=== PATIENT | male | born 1970 | race Caucasian/White ===

== ENCOUNTER 2016-08-13 13:13 | Outpatient (CLI) | payer OTHER | END 2016-08-13 13:14 | disposition home or self-care (01) | DX: G47.33 Obstructive sleep apnea (adult) (pediatric) (principal) ==

== ENCOUNTER 2016-11-27 15:43 | Outpatient (CLI) | payer OTHER ==
--- NOTE | 2016-11-27 17:17 | MRI Report ---
EXAM: MRI CERVICAL SPINE WITHOUT CONTRAST EXAM DATE: 11/27/2016 04:51 PM. CLINICAL HISTORY: Cervical radiculopathy, right arm and right neck pain COMPARISONS: None. TECHNIQUE: Multiplanar, multisequence T1-weighted and fluid-sensitive sequences of the cervical spine without contrast. Other: None. FINDINGS: Neurologic Structures: The visualized posterior fossa structures are unremarkable. No signal abnormal ity in the visualized spinal cord. Alignment: Normal. No scoliosis or spondylolisthesis. Bone Marrow: No gross fractures or bone lesions. No marrow edema. Interspace Levels/Facets: C1-C2: Unremarkable. C2-C3: There is mild right facet hypertrophy. There is no central canal or neural foraminal narrowing . C3-C4: There is mild bilateral facet hypertrophy. There is a small disk osteophyte complex. No signif icant central canal or neural foraminal narrowing. C4-C5: There is mild right greater than left facet hypertrophy. There is a small disk osteophyte comp sadaf. No significant central canal or neural foraminal narrowing. C5-C6: There is disk height loss. There is a right paracentral disk osteophyte complex. There is mild central canal and mild right neural foraminal narrowing. C6-C7: There is a moderate-sized right paracentral/foraminal disk osteophyte complex. There is mild c entral canal narrowing. There is severe right neural foraminal narrowing. C7-T1: Unremarkable. Musculature: Normal. No edema or fatty atrophy. Other: The paravertebral and prevertebral soft tissues are normal. IMPRESSION: 1. C6-C7 right paracentral/foraminal disk osteophyte complex with severe right neural foraminal and m ild central canal narrowing. 2. C5-C6 disk osteophyte complex with mild central canal and mild right neural foraminal narrowing. [facility] Referring Provider Line: [phone] SITE ID: [id number]
== END 2016-11-27 15:44 | disposition home or self-care (01) ==
LOC: DI 15:43
PROVIDERS: ATTEND Nurse Practitioner Family
DX: M50.322 Other cervical disc degeneration at C5-C6 level (principal); M47.892 Other spondylosis, cervical region
CPT/HCPCS: 72141

== ENCOUNTER 2016-12-31 15:34 | Outpatient (CLI) | payer OTHER | END 2016-12-31 15:35 | disposition home or self-care (01) | LOC: SC 15:34 | PROVIDERS: ATTEND Nurse Practitioner Family | DX: G47.33 Obstructive sleep apnea (adult) (pediatric) (principal) | CPT/HCPCS: 99212; 99214 ==

== ENCOUNTER 2017-09-30 13:44 | Outpatient (CLI) | payer OTHER | END 2017-09-30 13:45 | disposition home or self-care (01) | LOC: SC 13:44 | PROVIDERS: ATTEND Nurse Practitioner Family | DX: G47.33 Obstructive sleep apnea (adult) (pediatric) (principal) | CPT/HCPCS: 99212; 99214 ==

== ENCOUNTER 2019-05-18 09:25 | Outpatient (CLI) | payer OTHER ==
[2019-05-18 12:26] LABS: BASOPHILS % (AUTO) 0.4 %; EOSINOPHILS # (AUTO) 0.1 10^3/uL (0.0-0.7); EOSINOPHILS % (AUTO) 1.9 %; HGB - HEMOGLOBIN 15.1 g/dL (14.0-18.0); LYMPHOCYTES # (AUTO) 2.2 10^3/uL (1.5-3.5); LYMPHOCYTES % (AUTO) 47.8 %; MEAN CORPUSCULAR HEMOGLOBIN 31.9 pg (27.0-31.0); MEAN CORPUSCULAR HGB CONC 35.1 g/dL (32.0-36.0); MEAN CORPUSCULAR VOLUME 90.9 fL (80.0-94.0); MEAN PLATELET VOLUME 10.4 fL (7.4-11.4); MONOCYTES # (AUTO) 0.5 10^3/uL (0.0-1.0); MONOCYTES % (AUTO) 9.9 %; NEUTROPHILS # (AUTO) 1.8 10^3/uL (1.5-6.6); NEUTROPHILS % (AUTO) 39.8 %; PLT - PLATELET COUNT 192 10^3/uL (130-450); RED BLOOD COUNT 4.73 10^6/uL (4.70-6.10); RED CELL DISTRIBUTION WIDTH 12.1 % (12.0-15.0); WHITE BLOOD COUNT 4.6 x10^3/uL (4.8-10.8)
[2019-05-18 12:44] LABS: ALBUMIN 4.3 g/dL (3.2-5.5); ALBUMIN/GLOBULIN RATIO 1.2 (1.0-2.2); ALKALINE PHOSPHATASE 78 IU/L (42-121); ALT ALANINE AMINOTRANSFERASE 63 IU/L (10-60); AST ASPARTATE AMINOTRANSFERASE 36 IU/L (10-42); BILIRUBIN,TOTAL 0.6 mg/dL (0.2-1.0); BUN - BLOOD UREA NITROGEN 16 mg/dL (6-20); CALCIUM 9.5 mg/dL (8.5-10.3); CARBON DIOXIDE - CO2 26 mmol/L (21-32); CHLORIDE 105 mmol/L (101-111); CHOL/HDL RATIO 7.3 (<5.0); CHOLESTEROL 262 mg/dL; CREATININE 0.8 mg/dL (0.6-1.2); GFR - MDRD 104 (>89); GLUCOSE 97 mg/dL (70-100); HDL CHOLESTEROL 36 mg/dL; LDL CHOLESTEROL,CALCULATED 178 mg/dL; LDL/HDL RATIO 4.9 (<3.6); SODIUM 138 mmol/L (135-145); TOTAL PROTEIN 7.9 g/dL (6.7-8.2); VLDL CHOLESTEROL 48 mg/dL
== END 2019-05-18 23:59 | disposition home or self-care (01) ==
LOC: LAB.N 09:25
PROVIDERS: ATTEND Nurse Practitioner Gerontology
DX: E78.00 Pure hypercholesterolemia, unspecified (principal)
CPT/HCPCS: 36415; 80053; 80061; 83721; 85025

== ENCOUNTER 2019-07-27 12:47 | Outpatient (CLI) | payer BC, OTHER ==
[2019-07-27 13:31] VITALS: BP 140/82
--- NOTE | 2019-07-27 13:31 | SLEEP CARE CONSULTATION ---
Information from patient questionnaire entered by Maral Garcia. I have reviewed and concur with the information entered by Maral Garcia. This document represents the service I personally performed and the decisions made by me, Norah Carter, RN, MSN, CHIEF DEVELOPMENT OFFICER. History of Present Illness Previous diagnosis: Moderate, Obstructive Sleep Apnea-Hypopnea Syndrome AHI: 19 Reason for follow up: annual (last seen September 2017) Equipment type: CPAP Equipment obtained [facility]: [facility] -difficulty getting supplies and billing problems Mask style: Nasal pillows Mask brand: Resmed Backup mask available: Yes Last cushion change: 3 months CPAP Compliance Data - Data Reviewed with Patient Average duration of nightly device use: 7.45 Compliance rate %: 99.4 (180 days ) Current pressure setting (cmH2O): 8 Humidity settin Average residual AHI: 2.4 Average large leak: 2 min 25 sec Subjective Patient concerns: reports: other (his CPAP was obtained in 2008 but does not want to update. Last attempt to update he did not like new CPAP. Transfer to [facility] also difficulty getting supplies. ). denies: aerophagia, mask discomfort, air blowing in eyes, mask leak noise, condensation in mask/hose, nasal congestion, dry mouth, nose, throat, epistaxis Observed to snore while using device: Yes (rare) Current pressure setting perceived as: comfortable On therapy, patient: reports: sleeping better, awakening more refreshed, being more awake and alert during the day, more rested overall. denies: drowsiness while driving Initial [place] Sleepiness Scale score: 10 Current [place] Sleepiness Scale score: 11 Allergies and Home Medications Known drug allergies: Yes Home medication list reviewed: Yes Allergy and home medication list: Pravastatin 20mg daily Zetia 10mg daily Review of Systems Review of systems same as previous: Yes Physical Exam Blood Pressure: 140/82 (recovering from cold) Cuff size: long Heart Rate: 82 O2 Saturation: 97 Height: 5 ft 10 in Weight: 292 lb Body Mass Index: 41.8 BMI Classification: Obesity Class 3 Impression and Plan 1. Obstructive Sleep Apnea-Hypopnea Syndrome, moderate, with good treatment compliance and good apnea control. On CPAP therapy, the patient has better sleep quality and is more rested overall. For patient supply concerns. Patient was notified that another DME can be used so he does not have to pay out of pocket for his supplies. Currently getting supplies from [employer]. I will have my implementation coordinator inform of DME options. A [facility] prescription will then be made. Patient advised to contact this office if further supply problems. He can transfer again. He was advised to contact me to update his old CPAP if it starts making loud functioning noise as this is a sign it wearing out and needs to be replaced. If it has been over 6 months since I have seen him, he will need to make a follow up appointment. Patient has 9 pounds gained weight. Currently patients BMI is 41 obesity class 3. I explained how overall obesity increases the risk of apnea, CPAP pressure requirements and overall health risks especially cardiovascular and diabetes especially class 3. Increase in weight can also increase blood pressure. Thus patient is advised to lose weight. Weight loss can be done with reducing portion size, refined foods and balancing content with vegetables, fruit and protein. A diet consultation can be helpful in achieving optimal weight loss goals. The BMI chart was reviewed. The patient would like to reduce 50 pounds bringing their BMI down to 36. This was a comfortable weight for him in the past. Patient encouraged to discuss their weight loss goals with their PCP and consider a referral to a seed cone picker. The patient's CPAP pressure cannot be changed to autoCPAP to accommodate for future weight loss. Symptoms to report for pressure adjustment discussed with significant weight loss. Patient's apnea severity and rationale for treatment to reduce apnea, improve sleep quality and reduce cardiovascular and cerebrovascular events was reviewed. if unable to use CPAP, patient advised to avoid sleeping supine with pillow positioning as apnea more severe in supine positon. * Continue CPAP pressure at 8 cmH2O * Transfer to new DME * Notify me if snoring with mask or feeling that the pressure is too much or too little * Attempt to lose weight * Call this office if any problems using CPAP * Return for follow up in 1 year , or sooner if concerns arise Time Spent with Patient (minutes): 25 I spent 100% of this visit face to face with the patient with greater than 50% of this was spent time counseling the patient and coordination of care.
== END 2019-07-27 12:48 | disposition home or self-care (01) ==
LOC: SC 12:47
PROVIDERS: ATTEND Nurse Practitioner Family
DX: G47.33 Obstructive sleep apnea (adult) (pediatric) (principal); Z68.41 Body mass index [BMI] 40.0-44.9, adult
CPT/HCPCS: 99212; 99214

== ENCOUNTER 2020-06-28 08:00 | Outpatient (CLI) | payer BC, OTHER ==
[2020-06-28 12:07] LABS: BASOPHILS % (AUTO) 0.5 %; EOSINOPHILS # (AUTO) 0.1 10^3/uL (0.0-0.7); EOSINOPHILS % (AUTO) 2.2 %; HGB - HEMOGLOBIN 15.1 g/dL (14.0-18.0); LYMPHOCYTES # (AUTO) 2.2 10^3/uL (1.5-3.5); MEAN CORPUSCULAR HEMOGLOBIN 31.2 pg (27.0-31.0); MEAN CORPUSCULAR HGB CONC 33.6 g/dL (32.0-36.0); MEAN CORPUSCULAR VOLUME 92.8 fL (80.0-94.0); MEAN PLATELET VOLUME 10.9 fL (7.4-11.4); MONOCYTES # (AUTO) 0.7 10^3/uL (0.0-1.0); NEUTROPHILS # (AUTO) 2.8 10^3/uL (1.5-6.6); NEUTROPHILS % (AUTO) 48.1 %; PLT - PLATELET COUNT 181 10^3/uL (130-450); RED BLOOD COUNT 4.84 10^6/uL (4.70-6.10); RED CELL DISTRIBUTION WIDTH 12.1 % (12.0-15.0); WHITE BLOOD COUNT 5.9 x10^3/uL (4.8-10.8)
[2020-06-28 12:46] LABS: ALBUMIN 4.4 g/dL (3.2-5.5); ALBUMIN/GLOBULIN RATIO 1.2 (1.0-2.2); ALKALINE PHOSPHATASE 76 IU/L (42-121); ALT ALANINE AMINOTRANSFERASE 52 IU/L (10-60); AST ASPARTATE AMINOTRANSFERASE 30 IU/L (10-42); BILIRUBIN,TOTAL 0.7 mg/dL (0.2-1.0); BUN - BLOOD UREA NITROGEN 17 mg/dL (6-20); CALCIUM 9.6 mg/dL (8.5-10.3); CARBON DIOXIDE - CO2 24 mmol/L (21-32); CHLORIDE 106 mmol/L (101-111); CHOL/HDL RATIO 4.6 (<5.0); CHOLESTEROL 182 mg/dL; CREATININE 0.8 mg/dL (0.6-1.2); GLUCOSE 101 mg/dL (70-100); HDL CHOLESTEROL 40 mg/dL; LDL CHOLESTEROL,CALCULATED 111 mg/dL; LDL/HDL RATIO 2.8 (<3.6); SODIUM 140 mmol/L (135-145); TOTAL PROTEIN 8.2 g/dL (6.7-8.2); VLDL CHOLESTEROL 31 mg/dL
== END 2020-06-28 23:59 | disposition home or self-care (01) ==
LOC: LAB.WCP 08:00
PROVIDERS: ATTEND Nurse Practitioner
DX: Z00.00 Encounter for general adult medical examination without abnormal findings (principal); E78.00 Pure hypercholesterolemia, unspecified
CPT/HCPCS: 36415; 80053; 80061; 83721; 84443; 85025

== ENCOUNTER 2020-07-25 16:04 | Outpatient (CLI) | payer BC, OTHER ==
--- NOTE | 2020-07-25 15:58 | SLEEP CARE CONSULTATION ---
Information from patient questionnaire entered by Maral Garcia. I have reviewed and concur with the information entered by Maral Garcia. This document represents the service I personally performed and the decisions made by me, Norah Carter, RN, MSN, ADJUNCT PROFESSOR OF LAW. History of Present Illness Service Date and Time: 07/25/2020 1500 Previous diagnosis: Moderate, Obstructive Sleep Apnea-Hypopnea Syndrome AHI: 19 (in 2009) Reason for follow up: annual (last seen 07/2019) Equipment type: CPAP Equipment obtained from: [employer] (getting supplies as supplies) Mask style: Nasal pillows Backup mask available: Yes (old mask ) Last cushion change: a month ago Prior sleep studies: Yes Year and Where: 2009 - [facility] in [place] Type of Sleep Study: Polysomnography (Split-night) CPAP Compliance Data - Data Reviewed with Patient Average duration of nightly device use: 7 hr 38 min Compliance rate %: 100 (180 days) Current pressure setting (cmH2O): 8 Average residual AHI: 2.2 Average large leak: 15 sec Subjective Patient concerns: reports: air blowing in eyes (after turning resolves quickly and no eye irritation). denies: aerophagia, mask discomfort, mask leak noise, condensation in mask/hose, nasal congestion, dry mouth, nose, throat, epistaxis Observed to snore while using device: No Current pressure setting perceived as: comfortable On therapy, patient: reports: sleeping better, awakening more refreshed, being more awake and alert during the day, more rested overall. denies: drowsiness while driving Initial [place] Sleepiness Scale score: 10 (in 2012) Current [place] Sleepiness Scale score: 5 Allergies and Home Medications Known drug allergies: Yes Home medication list reviewed: Yes Allergy and home medication list: Zetia 10mg HS Pravastatin 40mg HS Review of Systems Review of systems same as previous: Yes Physical Exam Height: 5 ft 10 in Weight: 282 lb (lost 10 pounds ) Body Mass Index: 40.4 BMI Classification: Morbidly Obese Impression and Plan 1. Obstructive Sleep Apnea-Hypopnea Syndrome, moderate, with good treatment compliance and good apnea control. On CPAP therapy, the patient has better sleep quality and is more rested overall. He has lost weight and plans on losing more weight. I again reviewed the risks of morbid obesity and benefit of his weight loss to his overall health and to reducing apnea and his CPAP pressure requirements and praised his effort. I reviewed symptoms to report to adjust pressure for his weight loss. He also requests a letter of compliance for his work which will be completed and faxed to my office for patient. Patient's apnea severity and rationale for treatment to reduce apnea, improve sleep quality and reduce cardiovascular and cerebrovascular events was reviewed. If he is unable to use CPAP due to illness or power loss such as last night, he is advised to raise head of bed 30-40 degrees to decrease some apnea risk. * Continue CPAP pressure at 8 cmH2O * Notify me if snoring with mask or feeling that the pressure is too much or too little * Continue to lose weight * Letter of compliance * Call this office if any problems using CPAP * Return for follow up in 1 year , or sooner if concerns arise Counseling Topics: Weight loss health impact Visit Type: Telehealth Video Video Type: Doximity Patient Location: Home Location of Provider: Home Patient agrees and consents to this telehealth visit type: Yes Patient agrees to have their insurance billed: Yes Time Spent with Patient (minutes): 23 minutes patient / 10 minutes letter and documentation Provider Statement: I spent 100% of the Telehealth Video Call with the patient with greater than 50% spent counseling the patient and coordination of care.
== END 2020-07-25 16:05 | disposition home or self-care (01) ==
LOC: SC 16:04
PROVIDERS: ATTEND Nurse Practitioner Family
DX: G47.33 Obstructive sleep apnea (adult) (pediatric) (principal); E66.01 Morbid (severe) obesity due to excess calories; Z68.41 Body mass index [BMI] 40.0-44.9, adult

== ENCOUNTER 2020-08-16 14:15 | Outpatient (CLI) | payer BC, OTHER ==
--- NOTE | 2020-08-16 15:56 | XRAY Report ---
PROCEDURE: Thoracic Spine 3 View INDICATIONS: RIB PAIN TECHNIQUE: 3 views of the thoracic spine were acquired. COMPARISON: None. FINDINGS: Bones: No fractures or dislocations. No suspicious bony lesions. Mild degenerative endplate changes throughout mid to lower thoracic spine is seen. 12 pairs of ribs are noted, and appear intact where visualized. Soft tissues: No paravertebral stripe thickening. IMPRESSION: Mild degenerative disc disease in mid to lower thoracic spine. No acute compression fracture or spond ylolisthesis. Visualized bilateral ribs are grossly intact. Reviewed by: Daniel Berry MD on 08/16/2020 2:55 PM [place] Approved by: Daniel Berry MD on 08/16/2020 2:55 PM [facility] Station ID: [id number]
== END 2020-08-16 23:59 | disposition home or self-care (01) ==
LOC: DI.N 14:15
PROVIDERS: ATTEND Nurse Practitioner
DX: R07.81 Pleurodynia (principal); M51.34 Other intervertebral disc degeneration, thoracic region